=== PATIENT | male | born 1970 | race Caucasian/White ===

== ENCOUNTER → 2016-07-05 | Outpatient (CLI) | payer BC ==
[~2016-07-05] MED LIST: FEXO1TAB46 PO; SENNTAB23 PO
--- NOTE | 2016-07-05 09:16 | DIAGNOSTIC IMAGING REPORT ---
(TESTICULAR) SCROTUM-CONT CLINICAL HISTORY: N50.819 testicular pain COMPARISON STUDY: No previous studies for comparison. FINDINGS: The right testis measures 47 x 19 x 27 mm. The left testis measures 44 x 22 x 29 mm. No intratesticular masses are visualized. There is no evidence of testicular torsion. A few tiny incidental right-sided epididymal cysts were visualized. IMPRESSION: 1. No evidence of intratesticular mass 2. No evidence of testicular torsion Electronically signed by: Caleb Be M.D. 07/05/2016 9:15 AM Dictated Date/Time: 07/05/2016 9:14 AM
== END | disposition home or self-care (01) ==
LOC: C.ULTR 08:35
PROVIDERS: ATTEND Nurse Practitioner
DX: N50.819 Testicular pain, unspecified (principal)